=== PATIENT | male | born 1975 | race Caucasian/White ===

== ENCOUNTER 2017-02-13 00:03 | Emergency (ER) | payer SELFPAY ==
[2017-02-13] MEDS ORDERED: IBUPROFEN 400 MG TABLET PO ONE (00:15)
--- NOTE | 2017-02-13 00:29 | Emergency Department Record ---
History of Present Illness - General Chief Complaint: Ankle/Foot Injury Stated Complaint: RIGHT FOOT PAIN Time Seen by Provider: 02/13/17 00:12 Source: Patient - History of Present Illness Initial Comments: the patient states that he was getting out of the shower around 9 p.m. this evening when he thought he felt his right foot have a muscle spasm in the mid- foot. At first it was a small spot, but then it enlarged and now goes through to the bottom of the mid foot. He has been massaging it but it has not helped. He has no history of gout, or any other medical problems. He take no medications daily and has no known allergies. He denies any known injury. MD Complaint: Other (foot pain) - Related Data Home Medications Medication Instructions Recorded Confirmed Last Taken No Home Med [NO HOME MEDS] 02/13/17 02/13/17 Unknown Allergies Allergy/AdvReac Type Severity Reaction Status Date / Time No Known Drug Allergies Allergy Verified 02/13/17 00:09 Review of Systems Reviewed: No additional complaints except as noted below Constitutional: Reports: As per HPI. Denies: Chills, Fever, Malaise, Night sweats, Weakness, Weight change Eyes: Reports: As per HPI. Denies: Eye discharge, Eye pain, Photophobia, Vision change ENT: Reports: As per HPI. Denies: Congestion, Dental pain, Ear pain, Epistaxis , Hearing loss, Throat pain Respiratory: Reports: As per HPI. Denies: Cough, Dyspnea, Hemoptysis, Stridor, Wheezes Cardiovascular: Reports: As per HPI. Denies: Arrhythmia, Chest pain, Dyspnea on exertion, Edema, Murmurs, Orthopnea, Palpitations, Paroxysmal nocturnal dyspnea, Rheumatic Fever, Syncope Endocrine: Reports: As per HPI. Denies: Fatigue, Heat or cold intolerance, Polydipsia, Polyuria Gastrointestinal: Reports: As per HPI. Denies: Abdominal pain, Constipation, Diarrhea, Hematemesis, Hematochezia, Melena, Nausea, Vomiting Genitourinary: Reports: As per HPI. Denies: Dysuria, Frequency, Hematuria, Incontinence, Retention, Testicular pain, Testicular mass, Urgency Musculoskeletal: Reports: As per HPI. Denies: Arthralgia, Back pain, Gout, Joint swelling, Myalgia, Neck pain Skin: Reports: As per HPI. Denies: Bruising, Change in color, Change in hair/ nails, Lesions, Pruritus, Rash Neurological: Reports: As per HPI. Denies: Abnormal gait, Confusion, Headache, Numbness, Paresthesias, Seizure, Tingling, Tremors, Vertigo, Weakness Psychiatric: Reports: As per HPI. Denies: Anxiety, Auditory hallucinations, Depression, Homicidal thoughts, Suicidal thoughts, Visual hallucinations Hematological/Lymphatic: Reports: As per HPI. Denies: Anemia, Blood Clots, Easy bleeding, Easy bruising, Swollen glands Physical Exam - General General Appearance: Alert, Oriented x3, Cooperative, No acute distress - Head Head exam: Normal inspection - Eye Eye exam: Normal appearance, PERRL Pupils: Normal accommodation - ENT ENT exam: Normal exam, Mucous membranes moist, Normal external ear exam, Normal orophraynx, TM's normal bilaterally Ear exam: Normal external inspection. negative: External canal tenderness Nasal Exam: Normal inspection. negative: Discharge, Sinus tenderness Mouth exam: Normal external inspection, Tongue normal Teeth exam: Normal inspection. negative: Dental caries Throat exam: Normal inspection. negative: Tonsillar erythema, Tonsillar exudate - Neck Neck exam: Normal inspection, Full ROM. negative: Tenderness - Respiratory Respiratory exam: Normal lung sounds bilaterally. negative: Respiratory distress - Cardiovascular Cardiovascular Exam: Regular rate, Normal rhythm, Normal heart sounds - GI/Abdominal GI/Abdominal exam: Soft, Normal bowel sounds. negative: Tenderness - Rectal Rectal exam: Deferred - exam: Deferred - Extremities Extremities exam: Normal inspection, Full ROM, Normal capillary refill, Tenderness (tenderness without swelling or erythema over dorsal mid foot and also beneath into midfoot arch. CMS intact distally. Calf, ankle, knee without abnormality.) - Back Back exam: Reports: Normal inspection, Full ROM. Denies: Muscle spasm, Rash noted, Tenderness - Neurological Neurological exam: Alert, Normal gait, Oriented X3, Reflexes normal - Psychiatric Psychiatric exam: Normal affect, Normal mood - Skin Skin exam: Dry, Intact, Normal color, Warm Course Vital Signs 02/13/17 00:11 Temperature 98.9 F Pulse Rate [ 80 Pulse Ox Probe] Respiratory 20 Rate Blood Pressure 121/85 [Left Arm] Pulse Ox 96 - Reevaluation(s) Reevaluation #1: Upon closer inspection there is a tiny pinpoint erythematous spot at the center of the patient's painful foot area; unclear if this is related or unrelated to his symptoms. If it is a insect/spider bite that is new, patient was told it may worsen, swell, and worsen. There is no swelling, warmth or FB seen at this site. 02/13/17 00:39 Reevaluation #2: Patient was offered an binh wrap and benadryl 50 mg. He states he has both of these at home and will take those when he gets there. He was encouraged to follow with his PCP. He was given a list. 02/13/17 00:47 Reevaluation #3: Patient staes that he is to recheck if his foot becomes reddened or swollen or other new problems. 02/13/17 00:49 Medical Decision Making - Management Options MDM Management: No Additional Work-up Planned - Data Complexity MDM Data: X-Ray Ordered and/or Reviewed (Xray foot: Negative per ED physician. ( Pt. aware of this preliminary reading.)) Disposition Disposition: Discharge Clinical Impression: Foot pain, right Disposition: Home, Self-Care Condition: (1) Good Instructions: Arthralgia (ED) Additional Instructions: Binh wrap to foot. Decrease ambulation. Ice elevate first 48 hours. Take benadryl 50 mg when you get home. Tylenol or ibuprofen as directed as needed. PCP referral list to call in a.m. Forms: Patient Portal Access Quality - Quality Measures Quality Measures: N/A - Blood Pressure Screening Does Patient Have Any of the Following: No Blood Pressure Classification: Pre-Hypertensive BP Reading Systolic Measurement: 121 Diastolic Measurement: 85 Screening for High Blood Pressure: < Normal BP, F/U Not Required > [G8783]
[2017-02-13] MEDS ORDERED: Diph,Pert(Acell),Tet Vac 0.5 ML SYR IM ONE (00:47)
--- NOTE | 2017-02-14 08:46 | RADIOLOGY REPORT ---
EXAM: RIGHT FOOT HISTORY: WORSENING PAIN RIGHT FOOT, UNKNOWN INJURY. TECHNIQUE: Three views of the right foot were obtained. Comparison: None. Encounter: Initial. FINDINGS: Mild chronic deformity along the medial aspect of the distal end of the proximal phalanx of the great toe could be due to old injury, but does not appear acute. No definite acute fracture or dislocation of the right foot identified. No prominent focal soft tissue swelling seen. IMPRESSION: 1. MILD DEFORMITY DISTAL ASPECT OF THE PROXIMAL PHALANX OF THE GREAT TOE MEDIALLY MAY BE DUE TO OLD INJURY, BUT DOES NOT APPEAR ACUTE. 2. NO ACUTE FRACTURE OR DISLOCATION OF THE RIGHT FOOT EVIDENT. JOB NUMBER: [id number] MTDD
== END 2017-02-13 01:05 | disposition home or self-care (01) ==
LOC: ER 00:03
DX: M79.671 Pain in right foot (principal)
CPT/HCPCS: 90715; 96372; 99283